=== PATIENT | female | born 1975 | race Caucasian/White ===

== ENCOUNTER 2021-01-11 09:48 | Outpatient (REF) | payer MEDICAID, SELFPAY ==
[2021-01-11 10:19] LABS: COVID-19 Test Negative (Negative)
== END 2021-01-11 09:49 | disposition home or self-care (01) ==
LOC: HO.LAB 09:48
PROVIDERS: Visit Provider Internal Medicine
DX: Z20.822 Contact with and (suspected) exposure to COVID-19 (principal)
CPT/HCPCS: 36415; 87635; C9803

== ENCOUNTER 2021-02-22 17:27 | Emergency (ER) | payer MEDICAID, OTHER, SELFPAY ==
[2021-02-22 18:47] VITALS: BP 101/71; PULSE 63; RESP 16; TEMP 36.9; O2SAT 100; BMI 24.2
[2021-02-22 19:50] LABS: IDNOW Serial# 9DD0AD1C; Strep A Nucleic Acid Negative (Negative)
[2021-02-22 19:58] LABS: COVID-19 Test Negative (Negative)
--- NOTE | 2021-02-22 19:59 | ED.URI ---
HPI - URI/Sore Throat General Chief Complaint: Upper Respiratory Symptoms Stated Complaint: pt feeling sick Time Seen by Provider: 02/22/21 19:48 Source: patient Mode of arrival: ambulatory Limitations: no limitations History of Present Illness HPI Narrative: 45 y/o otherwise healthy female presenting with 3 days of not feeling well. She reports increased nasal congestion, headache, dry cough and chest tightness when she coughs. She also has a sore throat right side more than left. She has had no sick contacts. No SOB or wheezing. She denies seasonal allergies. MD elicited complaint: sore throat and nasal congestion Onset (ago): day(s) (3) Consistency: intermittent Severity: moderate Description of mucous: clear Able to tolerate fluids by mouth: Yes Exacerbating factors: nothing Relieving factors: OTC cold medicine Associated symptoms: chills, headache, rhinorrhea, nasal congestion, sore throat and cough Treatments prior to arrival: none Related Data Previous Rx's Medication Instructions Recorded azithromycin [Zithromax Z-Rafael] See Rx Instructions .ROUTE 02/22/21 .COMPLEX #6 tab fluticasone propionate [Flonase 1 spray INTRANASAL BID #16 g 02/22/21 Allergy Relief] ibuprofen 600 mg PO Q8H PRN #12 tab 02/22/21 Allergies Allergy/AdvReac Type Severity Reaction Status Date / Time No Known Allergies Allergy Verified 02/22/21 18:52 Review of Systems Review of Systems: Constitutional: No Fever, + Chills ENT/Mouth: + sore throat, No Rhinorrhea, No Swallowing Difficulty Eyes: No Eye Pain, No Swelling, No Redness Cardiovascular: + Chest Pain, No SOB, No Orthopnea, No Edema Respiratory: + Cough, No Sputum, No Wheezing, No dyspnea Gastrointestinal: No Nausea, No Vomiting, No Diarrhea, No abdominal Pain, No Hematochezia, No Melena Musculoskeletal: No joint pain, + Myalgias Skin: No Skin Lesions, No rash Neuro: No Weakness, No Numbness, No Dizziness, + Headache Heme/Lymph: No Lymphadenopathy PMFSH Past Medical History Attestation statement: The following information was validated with the patient. Medical History (Updated 02/22/21 @ 20:09 by CECILIO Santa) No known health problems Social History Social History Advance Directives: No Advance Directives Information Provided: Yes Patient : No Physical Exam Vital Signs: Vital Signs: Last Vital Signs Temp 98.4 F 02/22/21 18:47 Pulse 63 02/22/21 18:47 Resp 16 02/22/21 18:47 BP 101/71 02/22/21 18:47 Pulse Ox 100 02/22/21 18:47 Body Mass Index 24.2 Appearance: Alert. Oriented X3. No acute distress. Eyes: Pupils equal, round and reactive to light. ENT: Pharynx with moderate generalized erythema, no tonsillar exudates or swelling. Neck: Normal inspection. Neck supple. CVS: Normal heart rate and rhythm. Pulses normal. Respiratory: No respiratory distress. Breath sounds normal. Mild chest wall tenderness in parasternal region Abdomen: Soft and nontender. +BS x4 Skin: Skin warm and dry. Normal skin color. Normal skin turgor. No rashes. Extremities: No lower extremity edema. Negative Mckinley's sign Neuro: Oriented X 3. No motor deficit. No sensory deficit. Course Course Course Narrative: 45 y/o female presenting with 3 days of URI symptoms. Vital signs and exam are unremarkable. She appears well. COVID and Strep tests are negative. Will empirically treat for URI with Z-pack, Advised to get OTC cold/flu medcation and f/u with her provider. Chest discomfort is reproducible and not cardiac in nature. She is stable for discharge. Patient agreeable with plan. MDM - URI/Sore Throat Lab Data Labs: Lab Results 02/22/21 02/22/21 Range/Units 19:31 19:32 COVID-19 (ANDRADE) Negative (Negative) COVID-19 Clin Com See Note S. pyogenes GrpA OTIS Negative (Negative) Critical Care Time Critical Care Time Critical Care Time: No Discharge Plan Discharge Clinical Impression: Upper respiratory infection Qualifiers: URI type: unspecified URI Qualified Code(s): J06.9 - Acute upper respiratory infection, unspecified Patient Disposition: Home, Self-Care Instructions: Upper Respiratory Infection (ED) Additional Instructions: Your COVID test is negative. Your Strep test is negative. Take the prescribed mediations as directed for an upper respiratory infection. Rest and stay hydrated. Take over the counter cold/flu medications as needed for your symptoms. Take Tylenol and/or Motrin as needed for fevers and body aches. Follow up with your doctor this week. If you shortness of breath worsens , if you develop difficulty breathing or any other concerning symptom come back to the ER for further evaluation. Prescriptions: New azithromycin [Zithromax Z-Rafael] 250 mg tablet See Rx Instructions .ROUTE .COMPLEX Qty: 6 RF: 0 fluticasone propionate [Flonase Allergy Relief] 50 mcg/actuation spray,suspension 1 spray intranasal BID Qty: 16 RF: 0 ibuprofen 600 mg tablet 600 mg PO Q8H PRN (Reason: pain) Qty: 12 RF: 0 Print Language: [place]
== END 2021-02-22 20:29 | disposition home or self-care (01) ==
PROVIDERS: Emergency Provider Internal Medicine
DX: J06.9 Acute upper respiratory infection, unspecified (principal); Z20.822 Contact with and (suspected) exposure to COVID-19; J02.9 Acute pharyngitis, unspecified; R68.83 Chills (without fever)
CPT/HCPCS: 36415; 87635; 87651; 99283